=== PATIENT | female | born 1995 | race Caucasian/White ===

== ENCOUNTER 2017-11-13 20:53 | Inpatient (IN) | payer OTHER, SELFPAY ==
[2017-11-13 21:17] VITALS: BMI 26.2
[2017-11-13] MEDS ORDERED: NS / Oxytocin 40 units/1000ml 1,000 ML IV PRN (23:27)
[2017-11-13] MEDS ORDERED: HYDROcodone/Acetaminophen 5/325 mg Tablet PO PRN ×2 (23:27)
[2017-11-13] MEDS ORDERED: Ondansetron HCl/PF 4 MG/2 ML Vial IVP PRN (23:27)
[2017-11-13] MEDS ORDERED: Ibuprofen 800 MG TAB PO PRN (23:27)
[2017-11-13] MEDS ORDERED: Butorphanol Tartrate 1 MG/ML VIAL SLOW IVP PRN (23:27)
[2017-11-13] MEDS ORDERED: Lidocaine 1% (PF) 30 ML VIAL SC PRN (23:27)
[2017-11-13] MEDS ORDERED: Penicillin G Potassium 5 MILL.UNITS in Sodium Chloride 0.9% 100 ML IVPB SCH (23:30)
[2017-11-13] MEDS ORDERED: Lactated Ringer's 1,000 ML IV SCH ×2 (23:30)
[2017-11-13] MEDS ORDERED: Bupivacaine 0.75% 13.4 ML, fentaNYL Citrate/PF 400 MCG in Sodium Chloride 0.9% 78.6 ML EPIDURAL SCH (23:45)
[2017-11-13] MEDS ORDERED: DISCONTINUE ALL PREVIOUS NARCOTICS FS SCH (23:45)
[2017-11-13 23:51] LABS: Hemoglobin 14.4 g/dL (12.0-16.0); Mean Corpuscular HGB CONC 34.9 g/dL (32.0-36.0); Mean Corpuscular Hemoglobin 32.7 pg (27.0-31.0); Mean Corpuscular Volume 93.6 fL (78.0-98.0); Mean Platelet Volume 8.1 fL (7.4-10.4); Platelet Count 184 thou/uL (130-400); RBC Distribution Width 11.9 % (11.5-14.5); Red Blood Cell (RBC) Count 4.41 mill/uL (4.20-5.40); White Blood Cell (WBC) Count 17.6 thou/uL (4.8-10.8)
[2017-11-14 00:31] LABS: Syphilis Antibody Nonreactive (Nonreactive); Syphilis Antibody Index 0.02 S/CO (<1.00 Non-Reactive)
[2017-11-14 00:32] LABS: HBSAg Index 0.16 S/CO (0-0.99); HIV (1/2) Antibody/Antigen Non-Reactive (NonReactive); Hep B Surf Ag Non-Reactive S/CO (NonReactive)
[2017-11-14] MEDS ORDERED: Lidocaine 1% (PF) 30 ML VIAL ONE (00:45)
[2017-11-14] MEDS ORDERED: NS / Oxytocin 40 units/1000ml 1,000 ML ONE (00:45)
[2017-11-14] MEDS ORDERED: Penicillin G 2.5 MILL.units 2.5 MILL.UNITS in Premix Bag 1 BAG IVPB SCH (01:00)
--- NOTE | 2017-11-14 01:13 | PDOC.LDHP ---
Labor and Delivery H&P Chief complaint: contractions HPI: 22yo at 38w6d by LMP with painful ctx and SROM. Current gestational age (weeks): 38 Due date: 11/22/17 Dating criteria: last menstrual period Grav: 1 Para: 0 Current complications: none Abnormal US findings: No Current medications: pre- vitamins Previous surgical history: none Allergies/Adverse Reactions: Allergies Allergy/AdvReac Type Severity Reaction Status Date / Time No Known Allergies Allergy Verified 11/13/17 21:24 Social history: none - Physical Exam Vital signs reviewed and normal: yes General: NAD Heart: RRR Lungs: CTAB Abdomen: gravid Extremeties: no edema FHT: category 1, category 2, absent or minimal variables [place] contractions every: 3min - Vaginal Exam cm dilated: 10 Effacement: 100% Station: 3+ - OB Labs Blood type: O RH: positive Antibody Screen: negative HIV: negative RPR: negative HEPSAg: negative 1 hour GCT: negative GBS: positive Urine drug screen: not done Rubella: immune - Assessment L&D Assessment: term patient in labor - Plan Plan: admit to L&D, labor augmentation if indicated, GBS antibiotic prophylaxis , informed consent obtained, anesthesia consult for pain management
--- NOTE | 2017-11-14 01:15 | PDOC.OPDEL ---
OB Operative/Delivery Note Delivery Dr/Surgeon: Deonna Assist: n/a Pre-Delivery Diagnosis: active labor, elective induction Procedure/Post Delivery Dx: spontaneous vaginal delivery Weeks gestation: 38 Anesthesia: local - Findings A Sex: male - 1 min: 8 - 5 min: 9 - Additional Findings/Plan Placenta delivered: spontaneous Repaired Obstetrical Laceration: episiotomy (2nd degree, repaired with 2-0 vicryl in usual fashion) Estimated blood loss: normal Compilations/Other Findings: body cord x 1 Post delivery plan: routine recovery
[2017-11-14] MEDS ORDERED: diphenhydrAMINE 25 MG CAP PO PRN (03:56)
[2017-11-14] MEDS ORDERED: Bisacodyl 10 MG SUPP PR PRN (03:56)
[2017-11-14] MEDS ORDERED: HYDROcodone/Acetaminophen 5/325 mg Tablet PO PRN ×2 (03:56)
[2017-11-14] MEDS ORDERED: Preparation H Ointment 28 GM TUBE PR PRN (03:56)
[2017-11-14] MEDS ORDERED: Ondansetron HCl/PF 4 MG/2 ML Vial IVP PRN (03:56)
[2017-11-14] MEDS ORDERED: NS / Oxytocin 40 units/1000ml 1,000 ML IV SCH (03:56)
[2017-11-14] MEDS ORDERED: Benzocaine/Menthol 20-0.5% 60 ML CAN TOP PRN (03:56)
[2017-11-14] MEDS ORDERED: Promethazine HCl 25 MG/ML VIAL IM PRN (03:56)
[2017-11-14] MEDS ORDERED: Milk Of Magnesia 30 ML UDCUP PO PRN (03:56)
[2017-11-14] MEDS ORDERED: Lanolin Ointment 7 GM TUBE TOP PRN (03:56)
[2017-11-14] MEDS: Ibuprofen 800 MG TAB PO SCH ×3 (06:23→21:06)
[2017-11-14] MEDS: Prenatal Vitamin 1 TAB PO SCH (08:50)
[2017-11-14] MEDS: Docusate Calcium (SURFAK) 240 MG CAP PO SCH ×2 (08:50→21:06)
[2017-11-14] MEDS: Ferrous Sulfate 325 MG TAB PO SCH ×2 (08:53→16:50)
[2017-11-14] MEDS ORDERED: Adacel (T-DAP) 0.5 ML VIAL IM ONE (09:00)
[2017-11-15] MEDS: Ibuprofen 800 MG TAB PO SCH ×3 (06:29→21:23)
[2017-11-15] MEDS: Ferrous Sulfate 325 MG TAB PO SCH ×2 (08:43→18:06)
[2017-11-15] MEDS: Docusate Calcium (SURFAK) 240 MG CAP PO SCH ×2 (09:06→21:23)
[2017-11-15] MEDS: Prenatal Vitamin 1 TAB PO SCH (09:06)
--- NOTE | 2017-11-15 18:45 | PDOC.PP ---
Post Progress Note Post Day #: 1 PO intake tolerated: yes Flatus: yes Ambulation: yes Vital Signs (12 hours) Temp Pulse Resp BP 11/15/17 17:29 97.6 F 99 20 104/60 11/15/17 08:22 98.0 F 73 20 99/56 L 11/15/17 08:00 98.0 F 73 20 Weight Weight 153 lb - Physical Examination General: NAD Respiratory: non-labored breathing Abdominal: no distention, appropriately TTP Fundus firm & at: umb Extremities: negative homans (B) Neurological: no gross focal deficits Psychiatric: normal affect Result Diagrams: 11/13/17 23:45 Additional Labs: Post Labs Blood Type O POSITIVE 11/13/17 23:45 Hep Bs Antigen Non-Reactive S/CO (NonReactive) 11/13/17 23:45 - Assessment/Plan PPD 1 s/p TSVD VSSAF Doing well Rh pos RImm Cont PP care, home tomorrow
[2017-11-16] MEDS: Ibuprofen 800 MG TAB PO SCH ×2 (05:09→14:25)
[2017-11-16 08:01] VITALS: BP 95/54; TEMP 98.6
[2017-11-16] MEDS: Prenatal Vitamin 1 TAB PO SCH (08:59)
[2017-11-16] MEDS: Ferrous Sulfate 325 MG TAB PO SCH (08:59)
[2017-11-16] MEDS: Docusate Calcium (SURFAK) 240 MG CAP PO SCH (09:00)
== END 2017-11-16 14:30 | disposition home or self-care (01) | DRG 775 ==
LOC: L&D/OP 20:53 → L&D 23:33 → 3SW 11-14 03:47
PROVIDERS: ADMIT Obstetrics & Gynecology; ATTEND Obstetrics & Gynecology
PROC: 10E0XZZ Delivery of Products of Conception, External Approach (ICD-10-PCS; principal; 2017-11-14)
DX: O62.3 Precipitate labor (principal); Z3A.38 38 weeks gestation of pregnancy; Z37.0 Single live birth
CPT/HCPCS: 85027; 86780; 86850; 86900; 86901; 87340; 87389; 99285; J0595; J2001; J2405; J2540; J3010; J7050

== ENCOUNTER 2019-03-26 14:23 | Day surgery (SDC) | payer OTHER ==
[2019-03-26 15:00] VITALS: BMI 25.4
[2019-03-26] MEDS ORDERED: hydrALAZINE 20 MG/ML VIAL SLOW IVP PRN (15:23)
[2019-03-26] MEDS ORDERED: FLU VACC QS2019-20(6MOS UP)/PF 60 MCG/0.5 ML SYRINGE IM ONE (15:30)
--- NOTE | 2019-03-26 15:53 | HP ---
TIME OF EVALUATION: 15 to 15:30. LOCATION: Labor and delivery triage B. The patient of Dr. Ying. CHIEF COMPLAINT: Contractions at early term at 38 weeks and 1 day. HISTORY OF PRESENT ILLNESS: This is a 23-year-old , 2, para 1 with a vaginal delivery last year in 2018, who is currently at 38 weeks and 1 day. Her estimated date of confinement is 04/08. She is here for irregular contractions but denies vaginal bleeding or leakage of fluid. She has good movement. She states that she was seen yesterday in the office and was 4 cm. She states her contractions are irregular now, but can be as close together as every 3 to 5 minutes and then they space out. In Labor and delivery by the nursing first assessment, she was called to 4 to 5 cm. REVIEW OF SYSTEMS: Complete review of systems was checked and is otherwise negative unless specified in the HPI. PAST MEDICAL HISTORY: Negative. PAST SURGICAL HISTORY: None. ALLERGIES: NONE. OB HISTORY: She is a G2, P1, with a vaginal in 2018. SOCIAL HISTORY: Negative for alcohol, tobacco, and drug use. PHYSICAL EXAMINATION: VITAL SIGNS: Her blood pressure is 104/76, heart rate is 103, temperature is 98.9, respirations are 17 and nonlabored, and her O2 saturation is 97%. Clinically, she is in no acute distress. ABDOMEN: Soft and nontender. There are no signs of a surgical abdomen. CERVIX: According to the nurse, she is 5 cm dilated, but still somewhat posterior, about 50% effaced, and no evidence of ruptured membranes. She is about -1 station or so. On monitor, I evaluated the nonstress test at bedside and it is reactive with accelerations and moderate variability. There are no pathological decelerations. The rate is around 130. Contractions were irregular on tocodynamometer. ASSESSMENT: This is a G2, P1, at 38 weeks and 1 day (early term) in the latent phase at about 4-5 cm. She does have a history of "rapid labor" according to her history. PLAN: 1. We will keep the patient for 2 hours for labor observation. 2. Clinically I am not sure she is actively laboring because the contractions are just not picking up well, but we will monitor her for 2 hours before we make the decision to send her home. 3. If she make cervical change, we will admit her to her provider. 4. Pain medications p.r.n. 5. I have seen the patient at bedside. Job ID: [id number]
== END 2019-03-26 17:20 | disposition home or self-care (01) ==
LOC: L&D/OP 14:23
PROVIDERS: ATTEND Student in an Organized Health Care Education/Training Program
DX: Z34.83 Encounter for supervision of other normal pregnancy, third trimester (principal); Z3A.38 38 weeks gestation of pregnancy
CPT/HCPCS: 99283

== ENCOUNTER 2019-03-26 22:34 | Inpatient (IN) | payer SELFPAY ==
[2019-03-26] MEDS ORDERED: hydrALAZINE 20 MG/ML VIAL SLOW IVP PRN (23:08)
[2019-03-26 23:20] VITALS: BMI 25.4
--- NOTE | 2019-03-26 23:37 | HP ---
TIME OF EVALUATION: 11:00 p.m. LOCATION: Labor and Delivery room 1. The patient of Dr. Ying. CHIEF COMPLAINT: This is a patient who is here with a chief complaint of contractions. HISTORY OF PRESENT ILLNESS: In brief, I evaluated this patient earlier this afternoon and we observed her for 2 hours and sent her home as she was unchanged at 4 to 5 cm dilation. She returns now with complaint of persistent, but yet irregular contractions. She has no vaginal bleeding or leakage of fluid. She is a 23-year-old , G2, P1, with a vaginal delivery in 2018. She has good movement and has no other concerns. She denies trauma or vaginal bleed. REVIEW OF SYSTEMS: Complete review of systems was completed and is otherwise negative unless specified in the HPI. PAST MEDICAL HISTORY: Noncontributory. PAST SURGICAL HISTORY: None. OB HISTORY: She is a G2, P1 with a prior vaginal delivery. ALLERGIES: NONE. SOCIAL HISTORY: Negative for alcohol, tobacco, or drug use. PHYSICAL EXAMINATION: VITAL SIGNS: Stable and she is afebrile. She is normotensive. GENERAL: She is in no acute distress and does not appear clinically to be actively laboring. ABDOMEN: Soft and nontender and size consistent with dates. CERVIX: On physical exam, her cervix is 5 cm dilation, about 75% effaced, 0 station with no evidence of ruptured membranes. On monitor, heart tones are in the 120s to 130s and they are reactive with no pathological deceleration. There are no contractions on tocodynamometer. ASSESSMENT: This is a G2, P1, at 38 weeks with complaint of persistent contractions, but no cervical change from 5 cm. This is the same as earlier today. PLAN: 1. Reassurance given. 2. She is still in the latent phase and I do not have any medical indication to intervene for induction at this time. 3. We will watch her for 2 hours to make sure that there is no subtle cervical progress. 4. Pain control p.r.n. 5. Clinically, no /maternal concerns at this time. Job ID: [id number]
[2019-03-27] MEDS ORDERED: Ondansetron PF 4 MG/2 ML Vial IVP PRN ×2 (00:54→10:05)
[2019-03-27] MEDS ORDERED: Butorphanol Tartrate 1 MG/ML VIAL SLOW IVP PRN (00:54)
[2019-03-27] MEDS ORDERED: Promethazine HCl 25 MG/ML VIAL IM PRN ×2 (00:54→10:05)
[2019-03-27] MEDS ORDERED: Lidocaine 1% (PF) 30 ML VIAL SC PRN (00:54)
[2019-03-27] MEDS ORDERED: NS / Oxytocin 40 units/1000ml 1,000 ML IV PRN (00:54)
[2019-03-27] MEDS ORDERED: hydrALAZINE 20 MG/ML VIAL SLOW IVP PRN ×2 (00:54→10:05)
--- NOTE | 2019-03-27 00:56 | PDOC.EVN ---
Event Note - Event Note Event Note: CX now 6cm..admit
[2019-03-27] MEDS ORDERED: Penicillin G Potassium 5 MILL.UNITS in Sodium Chloride 0.9% 100 ML IVPB SCH (01:00)
[2019-03-27] MEDS: Lactated Ringer's 1,000 ML IV SCH ×2 (01:43→05:51)
[2019-03-27 01:54] LABS: Hemoglobin 12.7 g/dL (12.0-16.0); Mean Corpuscular HGB CONC 35.4 g/dL (32.0-36.0); Mean Corpuscular Hemoglobin 32.3 pg (27.0-31.0); Mean Corpuscular Volume 91.3 fL (78.0-98.0); Mean Platelet Volume 8.7 fL (7.4-10.4); Platelet Count 172 thou/uL (130-400); RBC Distribution Width 11.5 % (11.5-14.5); Red Blood Cell (RBC) Count 3.94 mill/uL (4.20-5.40); White Blood Cell (WBC) Count 11.2 thou/uL (4.8-10.8)
[2019-03-27] MEDS ORDERED: Fentanyl 4 mcg/Bup 0.1% Cadd 100 ML ONE (02:16)
[2019-03-27] MEDS ORDERED: Fentanyl 100 MCG/2 ML VIAL ONE (02:29)
[2019-03-27 02:42] LABS: HBSAg Index 0.17 S/CO (0-0.99); HIV (1/2) Antibody/Antigen Non-Reactive (NonReactive); HIV 1/2 INDEX 0.08 S/CO (<1.00); Hep B Surf Ag Non-Reactive S/CO (NonReactive)
[2019-03-27 04:49] LABS: Syphilis Antibody Nonreactive (Nonreactive); Syphilis Antibody Index 0.04 S/CO (<1.00 Non-Reactive)
[2019-03-27] MEDS: Penicillin G 2.5 MILL.units 2.5 MILL.UNITS in Premix Bag 1 BAG IVPB SCH ×2 (05:50→14:35)
[2019-03-27] MEDS ORDERED: FLU VACC QS2019-20(6MOS UP)/PF 60 MCG/0.5 ML SYRINGE IM ONE (09:00)
--- NOTE | 2019-03-27 09:39 | PDOC.LDHP ---
Labor and Delivery H&P Chief complaint: contractions HPI: 23yo at 38w2d by LMP here for painful ctx. 7cm dilated on admission. Current gestational age (weeks): 38 Due date: 04/08/19 Dating criteria: last menstrual period Grav: 2 Para: 1 Current complications: none Abnormal US findings: No Past Medical History: denies Current medications: pre- vitamins Previous surgical history: none Allergies/Adverse Reactions: Allergies Allergy/AdvReac Type Severity Reaction Status Date / Time No Known Allergies Allergy Verified 03/26/19 23:21 Social history: none - Physical Exam Vital signs reviewed and normal: yes General: NAD Heart: RRR Lungs: CTAB Abdomen: gravid Extremeties: no edema FHT: category 1 [place] contractions every: 4min - Vaginal Exam cm dilated: 10 Effacement: 100% Station: 3+ - OB Labs Blood type: O RH: positive Antibody Screen: negative HIV: negative RPR: negative HEPSAg: negative 1 hour GCT: negative GBS: positive Urine drug screen: negative Rubella: immune - Assessment L&D Assessment: term patient in labor - Plan Plan: admit to L&D, labor augmentation if indicated, GBS antibiotic prophylaxis , informed consent obtained, anesthesia consult for pain management
--- NOTE | 2019-03-27 09:40 | PDOC.OPDEL ---
OB Operative/Delivery Note Delivery Dr/Surgeon: Deonna Assist: n/a Pre-Delivery Diagnosis: active labor Procedure/Post Delivery Dx: spontaneous vaginal delivery Weeks gestation: 38 Anesthesia: epidural - Findings A Sex: male - 1 min: 9 - 5 min: 10 - Additional Findings/Plan Placenta delivered: spontaneous Repaired Obstetrical Laceration: episiotomy (mediolateral) Estimated blood loss: 98cc Compilations/Other Findings: NC x 1 and body cord x 1 Post delivery plan: routine recovery
[2019-03-27] MEDS ORDERED: Milk Of Magnesia 30 ML UDCUP PO PRN (10:05)
[2019-03-27] MEDS ORDERED: Benzocaine-Menthol 82.5 ML CAN TOP PRN (10:05)
[2019-03-27] MEDS ORDERED: Preparation H Ointment 28 GM TUBE PR PRN (10:05)
[2019-03-27] MEDS ORDERED: HYDROcodone/Acetaminophen 5/325 mg Tablet PO PRN ×2 (10:05)
[2019-03-27] MEDS ORDERED: Adacel (T-DAP) 0.5 ML SYRINGE IM ONE (10:05)
[2019-03-27] MEDS ORDERED: diphenhydrAMINE 25 MG CAP PO PRN (10:05)
[2019-03-27] MEDS ORDERED: Bisacodyl 10 MG SUPP PR PRN (10:05)
[2019-03-27] MEDS ORDERED: NS / Oxytocin 40 units/1000ml 1,000 ML IV SCH (10:05)
[2019-03-27] MEDS ORDERED: NS / Oxytocin 40 units/1000ml 1,000 ML ONE (10:07)
[2019-03-27] MEDS: Ibuprofen 800 MG TAB PO SCH ×2 (13:11→21:54)
[2019-03-27] MEDS: Ferrous Sulfate 325 MG TAB PO SCH (16:35)
[2019-03-27] MEDS: Docusate Calcium (SURFAK) 240 MG CAP PO SCH (21:54)
[2019-03-28] MEDS: Ibuprofen 800 MG TAB PO SCH ×2 (05:37→14:13)
[2019-03-28] MEDS: Ferrous Sulfate 325 MG TAB PO SCH (08:03)
[2019-03-28] MEDS: Docusate Calcium (SURFAK) 240 MG CAP PO SCH (08:03)
[2019-03-28 08:25] VITALS: BP 103/58; TEMP 98.1
[2019-03-28] MEDS ORDERED: Prenatal Vitamin 1 TAB PO SCH (09:00)
== END 2019-03-28 16:45 | disposition home or self-care (01) | DRG 807 ==
LOC: L&D/OP 22:34 → L&D 03-27 02:02 → 3SW 03-27 12:09
PROVIDERS: ADMIT Student in an Organized Health Care Education/Training Program; ATTEND Student in an Organized Health Care Education/Training Program
PROC: 10E0XZZ Delivery of Products of Conception, External Approach (ICD-10-PCS; principal; 2019-03-27)
PROC: 0W8NXZZ Division of Female Perineum, External Approach (ICD-10-PCS; 2019-03-27)
DX: O69.81X0 Labor and delivery complicated by cord around neck, without compression, not applicable or unspecified (principal); Z37.0 Single live birth; Z3A.38 38 weeks gestation of pregnancy; O69.2XX0 Labor and delivery complicated by other cord entanglement, with compression, not applicable or unspecified
CPT/HCPCS: 36415; 51702; 85027; 86780; 86850; 86900; 86901; 87340; 87389; 99285; J2540; J3010; J3490